=== PATIENT | female | born 1960 ===

== ENCOUNTER 2021-07-07 07:00 | Day surgery (SDC) | payer BC ==
[~2021-07-07] VITALS: Ht 162.7 cm; Wt 116.0 kg
[2021-07-07] VITALS (9 sets, daily range): BP systolic 144–190; BP diastolic 71–100; PULSE 58–69; TEMP 98.5
[2021-07-07 07:40] LABS: HEMATOCRIT 42.3 % (37.0-47.0); HEMOGLOBIN 14.2 g/dl (12.5-16.0); MEAN CELL VOLUME 84 fl (80.0-100.0); MEAN CORPUSCULAR HEMOGLOBIN 28 pg (27.0-31.0); MEAN CORPUSCULAR HGB CONC 34 g/dl (33.0-37.0); MEAN PLATELET VOLUME 10.4 fl (7.4-10.4); PLATELET COUNT 183 K/mm3 (130-400); RED BLOOD COUNT 5.03 M/mm3 (4.10-5.30)
[2021-07-07 07:49] LABS: PROTHROMBIN TIME 11.3 SECONDS (9.7-12.8)
[2021-07-07] MEDS ORDERED: ZESTRIL 10MG10 MG PO (07:49)
[2021-07-07] MEDS ORDERED: GLUCOPHAGE500 MG/TAB PO (07:50)
[2021-07-07] MEDS ORDERED: ASPIRIN E.C. 8181 MG PO (07:50)
[2021-07-07 07:52] LABS: PARTIAL THROMBOPLASTIN TIME 27.9 SECONDS (26.0-37.0)
[2021-07-07 07:53] LABS: CALCIUM 8.7 mg/dL (8.4-10.2); CREATININE, serum 0.83 mg/dL (0.57-1.11); POTASSIUM 4.2 mmol/L (3.5-4.5)
--- NOTE | 2021-07-07 09:02 | NUR ---
PRE PROCEDURE ASSESSMENT COMPLETED IN EXPRESS UNIT. SEE MERGE FOR ALL PROCEDUREAL MEDICATION ADMINISTRATION TIMES/DOSAGES AND INTRA/POST SEDATION ASSESSMENTS,
--- NOTE | 2021-07-07 10:30 | NUR ---
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 Awake and alert, in room. call light in reach, takes sprite and lunch ordered. reviewed Dr orders for right wrist and band on. no c/o
[2021-07-07] MEDS ORDERED: NORVASC2.5 MG PO (10:40)
--- NOTE | 2021-07-07 11:45 | NUR ---
pt sits up in bed, lunch ate. has no c/o, site remains the same.
--- NOTE | 2021-07-07 12:30 | NUR ---
2cc of air released from band, no bleeding, released 2cc every 10 min x2 with no bleeding or swelling and band taken off, bandaid over site with coban for support. pt up to b/r to v oid, gait stable
--- NOTE | 2021-07-07 13:00 | NUR ---
reviewed discharge inst. with pt and on followup appt. 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 also reviewed activity and care of site. discussed when to return to work and precautions with verbal understanding. iv d'cd intact. pt up in room dressed and discharged via w/c to car
== END 2021-07-07 13:00 | disposition home or self-care (01) ==
LOC: COL.CAR 07:00
PROVIDERS: Internal Medicine Cardiovascular Disease
DX: R07.9 Chest pain, unspecified (principal); R94.39 Abnormal result of other cardiovascular function study; I11.9 Hypertensive heart disease without heart failure
CPT/HCPCS: C1769; J1644; J2250; J3010; Q9967